=== PATIENT | female | born 1930 | race Caucasian/White ===

== ENCOUNTER 2016-07-20 20:46 | Emergency (ER) | payer MEDICARE, OTHER ==
[2016-07-20 21:10] VITALS: BP 153/81
--- OUTSIDE RECORDS SUMMARY | 2016-07-20 22:29 | XMS REPORT | Continuity of Care Document ---
:1930 Author Organization [facility] ([facility]) [place] [address] Phone [phone] Care Team Providers Name Role Phone Aaliyah Gloria Primary Care Provider [phone] Source Comments This disclosure is being made pursuant to the Care Everywhere program, applicable federal and state laws, and may not contain all informaitonavailable regarding this patient.[facility] ([facility]) Active Allergies and Adverse Reactions Allergen Noted Date Severity Reactions Comments Aloe 12/10/2015 Unknown Beta-Blockers (Beta-Adrenergic Blocking Agts) 05/26/2015 Fatigue Irbesartan 05/26/2015 Unknown Lisinopril 05/26/2015 OTHER Current Medications Prescription Sig. Disp. Refills Start Date End Date Status potassium chloride 10 2 tabs daily 07/15/2010 Active mEq XR tablet furosemide 40 mg tablet Take 40 mg by 5 04/30/2015 Active mouth daily. metoPROLol succinate 50 Take 50 mg by 10 04/26/2015 Active mg XL tablet mouth daily. cyanocobalamin (VITAMIN Take by mouth Active B-12) PO daily. ergocalciferol (VITAMIN Take by mouth Active D2) PO daily. losartan 100 mg tablet take 1 tablet 5 11/19/2015 Active (100 mg) by oral route once daily amLODIPine 10 mg tablet Take 1 tablet 90 tablet 2 03/17/2016 Active (10 mg total) by mouth daily. rivaroxaban (XARELTO) 20 Take 1 tablet 30 tablet 11 05/08/2016 Active mg tablet (20 mg total) by mouth every evening with dinner. Active Problems Problem Noted Date Hypertension Anxiety Obesity Atrial fibrillation Most Recent Encounters Date Type Specialty Providers Description 05/08/2016 Refill [facility] Emma Tirado Dx: Atrial fibrillation (Primary Dx) 05/06/2016 Refill [facility]iac Rehabilitation Emma Tirado Dx: Atrial fibrillation (Primary Dx) Social History Tobacco Use Types Packs/Day Years Used Date Never Smoker Alcohol Use Drinks/Week oz/Week Comments No Last Filed Vital Signs Vital Sign Reading Time Taken Blood Pressure 132/78 12/10/2015 11:00 AM CDT Pulse 70 12/10/2015 11:00 AM CDT Temperature - - Respiratory Rate - - Height 1.626 m (5' 4") 12/10/2015 11:00 AM CDT Weight 78.019 kg (172 lb) 12/10/2015 11:00 AM CDT Body Mass Index 29.51 12/10/2015 11:00 AM CDT Oxygen Saturation - - Plan of Care Health Maintenance Due Date Last Done Comments Hepatitis B Vaccine (1 of 3 - Primary Series) 1930 Tdap Vaccine 12/07/1943 Lipid Disorder Screening 1950 Td Vaccine 1948 Colonoscopy 1982 Zoster Vaccine 1992 Osteoporosis Screening (DXA Bone Density) 1997 Pneumococcal Vaccine (1 of 2 - PCV13) 1997 Influenza Vaccine: Seasonal (#1) 11/04/2015 Results from Last 3 Months Not on file
--- NOTE | 2016-07-20 22:31 | ERNOTE ---
Integumentary HPI - Narrative Date of Service: 07/20/16 - General Presenting Symptoms: insect bite Time Seen by Provider: 07/20/16 22:14 Source: patient - Immun/Allergies/Home Medications Immunizations: IMMUNIZATION HX Immunizations Up to Date Yes History of Influenza Vaccine No Hx Pneumococcal Vaccination Yes Allergies/Adverse Reactions: Allergies Allergy/AdvReac Type Severity Reaction Status Date / Time aloe vera Allergy Verified 07/20/16 21:10 lactose Allergy Verified 07/20/16 21:10 ibuprofen AdvReac Verified 07/20/16 21:10 Home Medications: HOME MEDICATIONS Calcium Carbonate [Calcium] 500 mg PO DAILY 05/14/14 [Last Taken 05/14/14] Cholecalciferol (Vitamin D3) [Vitamin D3] 2,000 unit PO DAILY 05/14/14 [Last Taken 05/14/14] Cyanocobalamin (Vitamin B-12) [Vitamin B-12] 1,000 mcg PO DAILY 05/14/14 [Last Taken 05/14/14] Furosemide [Lasix] 40 mg PO DAILY 05/14/14 [Last Taken 05/14/14] Metoprolol Succinate [Toprol Xl] 50 mg PO DAILY 05/14/14 [Last Taken 05/14/14] Potassium Chloride [Klor-Con M10] 10 meq PO DAILY 05/14/14 [Last Taken 05/14/14] Losartan Potassium [Cozaar] 100 mg PO DAILY 03/05/15 [Last Taken Unknown] Acetaminophen [Tylenol] 1,000 mg PO Q6H PRN #0 tablet 03/09/15 [Last Taken Unknown] Metoprolol Succinate [Toprol Xl] 50 mg PO DAILY tablet.sa 03/09/15 [Last Taken Unknown] Apixaban [Eliquis] 5 mg PO BID #60 tablet 03/13/15 [Last Taken Unknown] HYDROcodone/ACETAMINOPHEN [Tracy 5-325] 1 each PO Q4H #30 tablet 03/13/15 [Last Taken Unknown] Cephalexin Monohydrate [Keflex] 500 mg PO Q8H #21 capsule 07/20/16 [Last Taken Unknown] - History of Present Illness Narrative: Insect bite to left wrist on Wednesday. She noted that the area has now become red and swollen. Denies any fevers, chills or significant hand pain. The patient has never had a Tetanus toxoid and does not wish to have one toady. Location: Reports: upper extremity Quality: Reports: other Severity: mild Exposure: Reports: insect bite/spider Modifying Factors - (Improves): Reports: other - nothing Modifying Factors - (Worsens): Reports: other Associated Symptoms: Reports: denies symptoms Review of Systems - Review of Systems Constitutional: Present: no symptoms reported EYE: Present: no symptoms reported ENT: Present: no symptoms reported Respiratory: Present: no symptoms reported Cardiology: Present: no symptoms reported Gastrointestinal/Abdominal: Present: no symptoms reported Genitourinary: Present: no symptoms reported Musculoskeletal: Present: no symptoms reported Skin: Present: no symptoms reported Neurological: Present: no symptoms reported Endocrine: Present: no symptoms reported Hematologic/Lymphatic: Present: no symptoms reported - Patient's Past Medical History Patient History - Medical: No pertinent hx Patient History - Cardiac/Respiratory: No pertinent hx Patient History - Cancer: No Hx of Cancer Patient History - Surgical Procedures: Cholecystectomy Patient History - Other: None - Family History Mother Family History - Medical: Father Family History - Cardiac/Respiratory: History Unknown - Social History Living Situations: home Abuse History: No History of abuse Psych History: No pertinent hx Smoking Status: Never smoker Patient requests Smoking Cessation Consult: No Initiate information on Smoking Cessation: No Alcohol Use: none Drug Use: none - Immunizations Immunizations Up to Date: Yes Hx Pneumococcal Vaccination: Yes History of Influenza Vaccine: No Physical Exam - Physical Exam General Appearance: Present: no apparent distress Eye Exam: Normal inspection: bilateral, PERRL: bilateral Ears, Nose, Throat: Present: normal ENT inspection Neck: Present: normal inspection Respiratory: Present: no respiratory distress Cardiovascular/Chest: Present: regular rate, rhythm Gastrointestinal/Abdominal: Present: nondistended Back Exam: Present: normal inspection Extremity Exam: Present: other - left wrist- indurated and red area at the distal ulna. Neurological Exam: Present: alert, oriented Skin Exam: Present: normal color ED Progress - Vital Signs Vital Signs: Vital Signs 07/20/16 21:06 Temperature 36.5 C Pulse Rate 82 Respiratory 18 Rate Blood Pressure 153/81 O2 Sat by Pulse 99 Oximetry - Progress/Reassessment Chief Complaint: Insect Bite Departure Clinical Impression: Insect bite - Departure Disposition: Home self-care Condition: Good Instructions: Insect Bite Print Language: Latvian Referrals: Aaliyah Taylor MD [Primary Care Provider] - Prescriptions: Cephalexin Monohydrate [Keflex] 500 mg PO Q8H #21 capsule
[2016-07-20] MEDS ORDERED: CEPHALEXIN MONOHYDRATE 250 MG CAPSULE PO ONE (22:40)
[2016-07-20] MEDS ORDERED: CEPHALEXIN MONOHYDRATE 250 MG CAPSULE ONE (22:44)
== END 2016-07-20 22:56 | disposition home or self-care (01) ==
LOC: ER 20:46
DX: S60.862A Insect bite (nonvenomous) of left wrist, initial encounter (principal)